=== PATIENT | female | born 1980 | race Caucasian/White ===

== ENCOUNTER → 2017-07-05 | Outpatient (CLI) | payer OTHER ==
[~2017-07-05] MED LIST: CEPH500 PO; DEXGUASY PO; DICL250 PO; FLUT.05NI; HYDACE5 PO
[2017-07-07 12:55] LABS: HPV Genotype 16 Not Detected (NOTDET); HPV Genotype 18 Not Detected (NOTDET)
[2017-07-12 09:05] LABS: HPV High Risk Other Not Detected (NOTDET)
== END ==
LOC: LAB SRC 10:00
PROVIDERS: Registered Nurse
DX: Z12.4 Encounter for screening for malignant neoplasm of cervix (principal)
CPT/HCPCS: 87624; G0123

== ENCOUNTER 2019-06-22 04:14 | Emergency (ER) | payer BC ==
[~2019-06-22] VITALS: Ht 157.5 cm; Wt 61.2 kg
== END 2019-06-22 07:38 | disposition home or self-care (01) ==
LOC: ER 04:14
DX: M79.671 Pain in right foot (principal)
CPT/HCPCS: 73630; 99283-25

== ENCOUNTER → 2020-04-19 | Outpatient (CLI) | payer BC ==
[2020-04-21 15:58] LABS: CORONAVIRUS (COVID19) CSH-NRL Positive (Negative)
== END | disposition home or self-care (01) ==
LOC: LAB SHORT 17:05 → PLD 17:05
PROVIDERS: Physician Assistant Medical
DX: U07.1 COVID-19 (principal)
CPT/HCPCS: U0003